=== PATIENT | male | born 1965 | race Caucasian/White ===

== ENCOUNTER 2022-11-19 00:26 | Emergency (ER) | payer BC ==
[2022-11-19] MEDS ORDERED: Sodium Chloride 0.9% 10 ML Syringe FLUSH PRN (00:47)
[2022-11-19] MEDS ORDERED: Sodium Chloride 0.9% 1,000 ML IV SCH (01:00)
[2022-11-19] MEDS: Labetalol 100 MG/20 ML MDV IVPUSH ONE ×2 (01:00→01:30)
[2022-11-19 01:06] LABS: HEMATOCRIT 48.3 % (40.0-54.0); HEMOGLOBIN 17.1 g/dL (13.0-18.0); MEAN CORPUSCULAR HEMOGLOBIN 32.2 pg (27.0-32.0); MEAN CORPUSCULAR HGB CONC 35.4 g/dL (31.0-35.0); MEAN PLATELET VOLUME 9.6 fL (6.0-10.0); RED BLOOD CELL COUNT 5.31 M/uL (4.50-6.50); RED CELL DISTRIBUTION WIDTH 12.3 % (11.0-16.0); WHITE BLOOD CELL COUNT,WBC 4.8 K/uL (4.0-11.0)
[2022-11-19 01:21] LABS: ANION GAP 12.8 mmol/L (5.0-15.0); BUN/CREATININE RATIO 11.9 (6-25); CALCIUM 8.8 mg/dL (8.5-10.1); CARBON DIOXIDE,CO2 25.3 mmol/L (21.0-32.0); CREATININE 1.09 mg/dL (0.70-1.30); EST CRCL DRUG DOSING (CG) 80.6 mL/min; PHOSPHORUS 2.2 mg/dL (2.5-4.9); POTASSIUM,K 3.1 mmol/L (3.5-5.1)
[2022-11-19] MEDS ORDERED: Potassium Chloride Riders 10 MEQ in Premix Bag 1 BAG IV ONE (01:35)
[2022-11-19] MEDS ORDERED: Potassium Chloride Riders 50 ML ONE (01:41)
== END 2022-11-19 03:50 | disposition home or self-care (01) ==
LOC: LB.ED 00:26
DX: F16.90 Hallucinogen use, unspecified, uncomplicated (principal)
CPT/HCPCS: 36415; 80048; 80307; 83735; 84100; 85027; 93005; 96361; 96365; 96375; 99283; J3480; J7030

== ENCOUNTER 2023-06-20 14:26 | Emergency (ER) | payer BC | END 2023-06-20 14:53 | disposition home or self-care (01) | LOC: LB.ED 14:26 | DX: F41.9 Anxiety disorder, unspecified (principal); Z87.891 Personal history of nicotine dependence | CPT/HCPCS: 99283 ==